=== PATIENT | male | born 1980 ===

== ENCOUNTER 2024-10-16 06:18 | Day surgery (SDC) | payer BC, SELFPAY | END 2024-10-16 12:33 | disposition home or self-care (01) | LOC: GI 06:18 | PROVIDERS: ATTENDING PHYSICIAN Internal Medicine Gastroenterology | DX: Z12.11 Encounter for screening for malignant neoplasm of colon (principal); K64.8 Other hemorrhoids; R19.4 Change in bowel habit; Z83.719 Family history of colon polyps, unspecified | CPT/HCPCS: 45380; 88305 ==

== ENCOUNTER → 2024-10-27 09:21 | Outpatient (REF) | payer BC, SELFPAY | LOC: REG 09:21 | PROVIDERS: ATTENDING PHYSICIAN Physician Assistant | DX: G89.29 Other chronic pain (principal) | CPT/HCPCS: 36415; 72052; 73030 ==